=== PATIENT | female | born 1955 | race Caucasian/White ===

== ENCOUNTER → 2020-05-24 | Outpatient (CLI) | payer OTHER ==
[~2020-05-24] MED LIST: ALBU18HF INH; ALBU8.5H5 INH; ASCO100019 PO; CHOL10003 PO; CIDE500T PO; FLUO40CA2 PO; FLUT1BLS INH; LEVO50TA5 PO; [UNRECOGNIZED DRUG - CODE] PO
[2020-05-24 16:56] LABS: INTERNATIONAL NORMALIZED RATIO 0.94 (0.93-1.1)
[2020-05-24 16:58] LABS: ANION GAP 3 mmol/L (5-15); CALCIUM 9.1 mg/dL (8.5-10.1); CHLORIDE 109 mmol/L (98-107); CREATININE 0.94 mg/dL (0.55-1.02)
[2020-05-24 16:59] LABS: MEAN CORPUSCULAR HEMOGLOBIN 22.8 pg (27.0-34.8); MEAN CORPUSCULAR HGB CONC 30.6 g/dL (32.4-35.8); MEAN CORPUSCULAR VOLUME 74.5 fL (80-100); MEAN PLATELET VOLUME 8.3 fL (7.4-10.4); PLATELET COUNT 393 x10^3/uL (130-400); RED BLOOD COUNT 4.95 x10^6/uL (3.82-5.3); RED CELL DISTRIBUTION WIDTH 17.2 % (9.6-15.2)
[2020-05-24 17:28] LABS: BASOPHILS # (AUTO) 0.06 x10^3/uL (0-0.1); BASOPHILS % (AUTO) 1 % (0-1); EOSINOPHILS # (AUTO) 0.11 x10^3/uL (0-0.4); EOSINOPHILS % (AUTO) 1 % (1-7); LYMPHOCYTES % (AUTO) 19 % (22-44); MD MORPH REVIEW ONLY; MONOCYTES # (AUTO) 0.43 x10^3/uL (0.2-0.8); MONOCYTES % (AUTO) 5 % (2-9); NEUTROPHILS # (AUTO) 6.03 x10^3/uL (1.8-6.8); NEUTROPHILS % (AUTO) 74 % (42-75)
[2020-05-24 17:29] LABS: MICROCYTOSIS 1+; OVALOCYTES 1+
[2020-05-24 17:30] LABS: HYPOCHROMIA 1+; TEAR DROPS 1+
[2020-05-24 17:31] LABS: <PLATELET ESTIMATE> ADEQUATE; <PLT MORPHOLOGY> NORMAL PLT MORPH; ANISOCYTOSIS 1+
== END | disposition home or self-care (01) ==
LOC: STAR 15:44
PROVIDERS: ATTEND Orthopaedic Surgery
DX: Z01.818 Encounter for other preprocedural examination (principal); M17.12 Unilateral primary osteoarthritis, left knee; M25.562 Pain in left knee
CPT/HCPCS: 36415; 80048; 83036; 85025; 85610; 85730; 87081; 93005

== ENCOUNTER 2020-06-01 05:43 | Day surgery (SDC) | payer OTHER ==
[~2020-06-01] VITALS: Ht 162.6 cm; Wt 90.0 kg
[2020-06-01] MEDS ORDERED: LACTATED RINGERS 1,000 ML IV SCH (06:02)
[2020-06-01 06:06] VITALS: BP 138/86
[2020-06-01] MEDS ORDERED: CHLORHEXIDINE 15 ML UDC ONE (06:09)
[2020-06-01] MEDS ORDERED: KETOROLAC 60 MG/2 ML ONE (06:17)
[2020-06-01] MEDS ORDERED: TRANEXAMIC ACID 100 MG/ML, 10ML ONE ×2 (06:17)
[2020-06-01] MEDS ORDERED: ROPIvacaine/PF 0.5%, 30 ML ONE (06:18)
[2020-06-01] MEDS ORDERED: VANCOMYCIN 1,000 MG ONE (06:18)
[2020-06-01] MEDS ORDERED: SODIUM CHLORIDE 0.9% 50 ML ONE (06:18)
[2020-06-01] MEDS ORDERED: EPINEPHRINE 1 MG/ML, 1ML ONE (06:18)
[2020-06-01] MEDS ORDERED: ROPIvacaine/PF 0.5%, 20 ML ONE (06:19)
[2020-06-01] MEDS ORDERED: MIDAZOLAM 1 MG/ML, 2ML ONE (06:27)
[2020-06-01] MEDS ORDERED: FENTANYL PF 250 MCG/5ML ONE (06:28)
[2020-06-01] MEDS ORDERED: CHLORHEXIDINE 15 ML UDC MM ONE (06:30)
[2020-06-01] MEDS ORDERED: GABAPENTIN 300 MG CAPSULE PO ONE (06:30)
[2020-06-01] MEDS ORDERED: ACETAMINOPHEN 500 MG TABLET PO ONE (06:30)
[2020-06-01] MEDS ORDERED: NS + 20MEQ KCL 1,000 ML IV SCH (06:34)
[2020-06-01] MEDS ORDERED: CEFAZOLIN PMX 2GM/50ML 50 ML IVPB SCH ×2 (07:00→15:30)
[2020-06-01] MEDS ORDERED: MEPERIDINE/PF 25MG/0.5ML IVPush PRN (07:00)
[2020-06-01] MEDS ORDERED: ONDANSETRON 4 MG TABLET PO PRN (07:00)
[2020-06-01] MEDS ORDERED: ONDANSETRON 2MG/ML, 2ML IV PRN (07:00)
[2020-06-01] MEDS ORDERED: OXYcodone 5 MG/5 ML ORAL.SOL UDC PO PRN (07:00)
[2020-06-01] MEDS ORDERED: MAGNESIUM HYDROXIDE 8%, 30ML UDC PO PRN (07:00)
[2020-06-01] MEDS ORDERED: SENNA/DOCUSATE TABLET PO PRN (07:00)
[2020-06-01] MEDS ORDERED: OXYcodone IR 5MG TABLET PO PRN (07:00)
[2020-06-01] MEDS ORDERED: LABETALOL 5MG/ML, 20ML IV PRN (07:00)
[2020-06-01] MEDS ORDERED: BISACODYL 10 MG SUPP PR PRN (07:00)
[2020-06-01] MEDS ORDERED: ALBUTEROL HFA 90 MCG/SPRAY INH PRN (07:00)
[2020-06-01] MEDS ORDERED: ACETAMINOPHEN 325 MG TABLET PO PRN ×2 (07:00)
[2020-06-01] MEDS ORDERED: hydrALAzine 20 MG/ML, 1ML IV PRN (07:00)
[2020-06-01] MEDS ORDERED: LORazepam 2 MG/ML, 1ML IVPush PRN (07:00)
[2020-06-01] MEDS ORDERED: PROMETHAZINE 25 MG/ML, 1ML IVPush PRN (07:00)
[2020-06-01] MEDS ORDERED: DIPHENHYDRAMINE 25 MG CAPSULE PO PRN (07:00)
[2020-06-01] MEDS ORDERED: HYDROmorphone 1 MG/ML, 1ML INJ IVPush PRN (07:00)
[2020-06-01] MEDS ORDERED: FENTANYL PF 100 MCG/2ML IV PRN (07:00)
[2020-06-01] MEDS ORDERED: HYDROcodone/APAP 5/325 TABLET PO PRN (07:00)
[2020-06-01] MEDS ORDERED: DIPHENHYDRAMINE 50 MG/ML, 1ML IVPush PRN (07:00)
[2020-06-01] MEDS ORDERED: ALBUTEROL SULFATE 2.5 MG/3 ML NPPB PRN (07:00)
[2020-06-01] MEDS ORDERED: BUPIVACAINE/PF 0.25% ONE (07:34)
[2020-06-01] MEDS ORDERED: DEXAMETHASONE 4 MG/ML, 1ML ONE (07:34)
[2020-06-01] MEDS ORDERED: LIDOCAINE-MPF 2% ,5ML ONE (07:34)
[2020-06-01] MEDS ORDERED: ONDANSETRON 2MG/ML, 2ML ONE (07:34)
[2020-06-01] MEDS ORDERED: PROPOFOL 10 MG/ML, 20ML ONE (07:34)
[2020-06-01] MEDS ORDERED: CEFAZOLIN 1,000 MG ONE (07:34)
[2020-06-01] MEDS ORDERED: LIDOCAINE GEL 2%, 5ML ONE (07:39)
[2020-06-01] MEDS ORDERED: DOCUSATE 100 MG CAPSULE PO SCH (09:00)
[2020-06-01] MEDS ORDERED: FLUTICASONE/VILANTEROL 200-25MCG/INH INH SCH (09:00)
[2020-06-01] MEDS ORDERED: LEVOTHYROXINE 50 MCG TABLET PO SCH (09:00)
[2020-06-01 14:40] VITALS: BP 132/64
[2020-06-01] MEDS ORDERED: OXYC5CAP2 PO (17:15)
[2020-06-01] MEDS ORDERED: MELO7.5T5 PO (17:16)
[2020-06-01] MEDS ORDERED: TRAM50TA2 PO (17:16)
[2020-06-01] MEDS ORDERED: ASPIRIN 81 MG TABLET EC PO SCH (18:00)
[2020-06-01] MEDS ORDERED: ZOLPIDEM 5MG TABLET PO PRN (21:00)
[2020-06-02] MEDS ORDERED: LEVOTHYROXINE 50 MCG TABLET PO SCH (06:00)
[2020-06-02] MEDS ORDERED: DEXAMETHASONE 4 MG/ML, 1ML IVPush SCH (06:00)
== END 2020-06-01 18:03 | disposition home or self-care (01) ==
LOC: OUT 05:43 → 3N 09:20 → OUT 18:03
PROVIDERS: ATTEND Orthopaedic Surgery
DX: M17.12 Unilateral primary osteoarthritis, left knee (principal); Z11.59 Encounter for screening for other viral diseases; M25.762 Osteophyte, left knee; J45.909 Unspecified asthma, uncomplicated; G47.33 Obstructive sleep apnea (adult) (pediatric); E07.9 Disorder of thyroid, unspecified; E66.9 Obesity, unspecified; Z79.890 Hormone replacement therapy; Z79.899 Other long term (current) drug therapy; Z91.048 Other nonmedicinal substance allergy status; Z90.49 Acquired absence of other specified parts of digestive tract
CPT/HCPCS: 27447; 36415; 64447; 87635; 97110; 97161; C1713; C1776; J0171; J0690; J1100; J1885; J2250; J2405; J2704; J2795; J3010; J3370; J3490; J7120; G0378

== ENCOUNTER 2020-11-04 07:34 | Outpatient (CLI) | payer OTHER ==
[~2020-11-04 07:34] MED LIST changes: +MELO7.5T5 PO; +OXYC5CAP2 PO; +TRAM50TA2 PO
== END 2020-11-04 23:59 | disposition home or self-care (01) ==
LOC: CFH 07:34
PROVIDERS: ATTEND Nurse Practitioner
DX: Z12.31 Encounter for screening mammogram for malignant neoplasm of breast (principal)
CPT/HCPCS: 77067